=== PATIENT | male | born 1950 | race Caucasian/White ===

== ENCOUNTER 2025-07-28 15:35 | Emergency (ER) | payer MEDICARE, SELFPAY ==
[2025-07-28 15:43] VITALS: BP 106/60; PULSE 101; RESP 18; TEMP 36.7; O2SAT 99
[2025-07-28 15:45] VITALS: BMI 21.2
== END 2025-07-28 17:52 | disposition left against medical advice (07) ==
LOC: SERX 16:01
PROVIDERS: Emergency Provider Emergency Medicine
DX: Z53.21 Procedure and treatment not carried out due to patient leaving prior to being seen by health care provider (principal)
CPT/HCPCS: 99281